=== PATIENT | female | born 1975 | race Two or more races ===

== ENCOUNTER 2016-10-15 17:26 | Emergency (ER) | payer SELFPAY ==
[2016-10-15] MEDS ORDERED: ASPIRIN 81 MG TABLET, CHEWABLE PO ONE (17:47)
[2016-10-15] MEDS ORDERED: IPRATROPIUM/ALBUTEROL 0.5-2.5 MG/3 ML AMPUL NEB ONE (17:48)
[2016-10-15] MEDS ORDERED: PREDNISONE 20 MG TABLET PO ONE (17:49)
--- NOTE | 2016-10-15 17:49 | ER Document Report ---
ED Medical Screen (RME) - General Stated Complaint: CHEST PAIN Mode of Arrival: Ambulatory Information source: Patient Notes: Patient presents with chest pain that started yesterday, cough symptoms started today. Patient also reports headache symptoms. Patient states she has chronic chest pains that she attributes to anemia. hx: Anemia, thyroid I have greeted and performed a rapid initial assessment of this patient. A comprehensive ED assessment and evaluation of the patient, analysis of test results and completion of the medical decision making process will be conducted by additional ED providers. TRAVEL OUTSIDE OF THE [place] IN LAST 30 DAYS: No - Related Data Allergies/Adverse Reactions: No Known Allergies Allergy (Verified 10/15/16 17:45) Past Medical History Pulmonary Medical History: Reports: Hx Pneumonia Endocrine Medical History: Reports: Hx Hypothyroidism GI Medical History: Reports: Hx Irritable Bowel Psychiatric Medical History: Reports: Hx Anxiety, Hx Depression Past Surgical History: Reports: Hx Gynecologic Surgery - bilateral salpingectomy , Hx Tubal Ligation - Immunizations Immunizations up to date: No Hx Diphtheria, Pertussis, Tetanus Vaccination: Yes Physical Exam - Respiratory Respiratory status: No respiratory distress Breath sounds: Nonproductive cough, Wheezing - Cardiovascular Rhythm: Regular Heart sounds: S1 appreciated, S2 appreciated
--- NOTE | 2016-10-15 18:39 | EKG REPORT ---
SEVERITY:- NORMAL ECG - SINUS RHYTHM : Confirmed by: Sage Gandara 15-Oct-2016 18:39:04
[2016-10-15] MEDS ORDERED: ONDANSETRON 4 MG TAB.RAPDIS ONE (20:31)
[2016-10-15] MEDS ORDERED: ONDANSETRON 4 MG TAB.RAPDIS PO ONE (20:33)
[2016-10-15] MEDS ORDERED: PROCHLORPERAZINE EDISYLATE INJ 10 MG/2 ML VIAL IV ONE (20:48)
[2016-10-15] MEDS ORDERED: KETOROLAC TROMETHAMINE INJ/PF 30 MG/1 ML SDV IV ONE (20:48)
[2016-10-15] MEDS ORDERED: DIPHENHYDRAMINE HCL 50 MG/ML VIAL IV ONE (20:48)
[2016-10-15] MEDS ORDERED: NORMAL SALINE 1000 ML 1,000 ML IV ONE (20:49)
[2016-10-15] MEDS ORDERED: BENZONATATE 100 MG CAPSULE PO ONE (20:50)
--- NOTE | 2016-10-15 20:51 | ER Document Report ---
ED General - General Chief Complaint: Chest Pain Stated Complaint: CHEST PAIN Mode of Arrival: Ambulatory Notes: Patient is a 41-year-old female with past history of morbid obesity and hypertension who presents with chest discomfort, headache, and a persistent cough for the past 2 days. Describes her chest discomfort as a dull, throbbing pain that is worsened by coughing and started after approximately 24 hours of persistent coughing. Nothing improves or worsens that pain. She also notes that she has had a headache that started in the last 12-24 hours. Gradual in onset and progressively worsening. It is bitemporal and throbbing. States she' s had similar headaches in the past. She is not seeing her primary care physician regarding today's concerns. She has not taken anything to treat her symptoms. Multiple sick contacts at home with the same symptoms. TRAVEL OUTSIDE OF THE [place] IN LAST 30 DAYS: No - Related Data Allergies/Adverse Reactions: No Known Allergies Allergy (Verified 10/15/16 17:45) Past Medical History - General Information source: Patient - Social History Smoking Status: Never Smoker Chew tobacco use (# tins/day): No Frequency of alcohol use: None Drug Abuse: None Lives with: Spouse/Significant other Family History: Arthritis, CAD, DM, Hyperlipidemia, Hypertension, Thyroid Disfunction, Other Patient has suicidal ideation: No Patient has homicidal ideation: No Pulmonary Medical History: Reports: Hx Pneumonia Endocrine Medical History: Reports: Hx Hypothyroidism Renal/ Medical History: Denies: Hx Peritoneal Dialysis GI Medical History: Reports: Hx Irritable Bowel Psychiatric Medical History: Reports: Hx Anxiety, Hx Depression Past Surgical History: Reports: Hx Gynecologic Surgery - bilateral salpingectomy , Hx Tubal Ligation - Immunizations Immunizations up to date: No Hx Diphtheria, Pertussis, Tetanus Vaccination: Yes Review of Systems - Review of Systems Notes: Constitutional: Negative for fever. HENT: Negative for sore throat. Eyes: Negative for visual changes. Cardiovascular: Positive for chest pain. Respiratory: Negative for shortness of breath. Positive for cough Gastrointestinal: Negative for abdominal pain, vomiting or diarrhea. Positive for nausea Genitourinary: Negative for dysuria. Musculoskeletal: Negative for back pain. Skin: Negative for rash. Neurological: Negative for headaches, weakness or numbness. 10 point ROS negative except as marked above and in HPI. Physical Exam - Vital signs Vitals: Temp Pulse Resp BP Pulse Ox 98.4 F 102 H 25 H 143/98 H 100 10/15/16 17:46 10/15/16 17:46 10/15/16 17:46 10/15/16 17:46 10/15/16 17:46 Interpretation: Tachycardic, Tachypneic Notes: PHYSICAL EXAMINATION: GENERAL: Well-appearing, well-nourished and in no acute distress. HEAD: Atraumatic, normocephalic. EYES: Pupils equal round and reactive to light, extraocular movements intact, sclera anicteric, conjunctiva are normal. ENT: nares patent, oropharynx clear without exudates. Moist mucous membranes. NECK: Normal range of motion, supple without lymphadenopathy LUNGS: Breath sounds clear to auscultation bilaterally and equal. No wheezes rales or rhonchi. HEART: Regular rate and rhythm without murmurs Chest wall: Pain on palpation of the mid sternal region ABDOMEN: Soft, nontender, normoactive bowel sounds. No guarding, no rebound. No masses appreciated. EXTREMITIES: Normal range of motion, no pitting or edema. No cyanosis. NEUROLOGICAL: Face symmetric. Tongue protrudes midline. Extraocular motions intact. Pupils are 2 mm and equally reactive. Normal speech, normal gait. 5 out of 5 strength in both the distal and proximal upper and lower extremities bilaterally. Sensation is grossly intact throughout. Finger to nose testing normal. Pronator drift normal. PSYCH: Normal mood, normal affect. SKIN: Warm, Dry, normal turgor, no rashes or lesions noted. Course - Re-evaluation Re-evalutation: 10/15/16 20:50 Patient presents with cough, vomiting, diarrhea, and fever at home consistent with a diagnosis of influenza or a flulike illness. Patient is overall well in appearance, in no acute distress. Lung sounds clear. Able to tolerate oral intake without difficulty here in the emergency department. After risks and benefits conversation with the patient regarding the use of Tamiflu, they have elected to use supportive care without Tamiflu based on concerns about lack of efficacy as well as the side effect profile. Laboratories do not show any significant dehydration, and chest x-ray is clear area and patient did complain of chest wall pain that started after days of vigorous coughing and her clinical history is not consistent with an acute pulmonary embolus, ACS, or aortic dissection. EKG is unremarkable and I do not believe cardiac marker testing is indicated based on her clinical history. Regarding patient's headache: I suspect that this is related to her infectious illness and is not related to an acute meningitis, encephalitis or subarachnoid hemorrhage. Her headache did completely resolve after receiving a migraine cocktail here in the emergency department. At this time will discharge with return precautions and follow-up recommendations. Verbal discharge instructions given a the bedside and opportunity for questions given. Medication warnings reviewed. Patient is in agreement with this plan and has verbalized understanding of return precautions and the need for primary care follow-up in the next 24-72 hours. - Vital Signs Vital signs: Temp Pulse Resp BP Pulse Ox 98.3 F 102 H 16 120/74 97 10/15/16 23:09 10/15/16 17:46 10/15/16 23:07 10/15/16 23:07 10/15/16 23:07 - Laboratory Result Diagrams: 10/15/16 21:04 Laboratory results interpreted by me: 10/15/16 21:04 Potassium 3.2 L - Diagnostic Test Radiology reviewed: Image reviewed, Reports reviewed Radiology results interpreted by me: 10/16/16 03:50 Chest x-ray: No acute infiltrate - EKG Interpretation by Me Additional EKG results interpreted by me: 10/16/16 03:50 Normal sinus rhythm. Rate 70. No ST elevations or depressions. QTC is 423. Discharge - Discharge Clinical Impression: Persistent cough, Chest wall pain Condition: Good Disposition: HOME, SELF-CARE Additional Instructions: Your symptoms are most consistent with flu or flulike illness. There is no treatment that is effective for this diagnosis other than supportive care at home. This includes drinking plenty of fluids, using Tylenol or ibuprofen as needed for fever and discomfor. Please follow closely with you primary care physician the next 1-2 days regarding this diagnosis. Return to the emergency department immediately if you began to have persistent vomiting prevents you from being able to keep fluids down for more than 12 hours, you pass out, you began having difficulty breathing, you become confused, or you have any other symptoms that are worrisome to you.
[2016-10-15 21:36] LABS: ANION GAP 12 (5-19); BLOOD UREA NITROGEN 7 mg/dL (7-20); CALCIUM 9.3 mg/dL (8.4-10.2); CARBON DIOXIDE 22 mmol/L (22-30); CHLORIDE 107 mmol/L (98-107); CREATININE RESULT 0.72 mg/dL (0.52-1.25); GLUCOSE 107 mg/dL (75-110); POTASSIUM 3.2 mmol/L (3.6-5.0); SODIUM 140.6 mmol/L (137-145)
[2016-10-15 23:15] VITALS: BP 120/74
== END 2016-10-15 23:11 | disposition home or self-care (01) ==
LOC: ER 17:26
DX: R05 Cough (principal); R07.89 Other chest pain; E66.01 Morbid (severe) obesity due to excess calories; I10 Essential (primary) hypertension; R51 Headache
CPT/HCPCS: 93005; 94640; 99285; 96374; 96375; 81025; 80048; 71020; 93010; J1200; S0119; J1885; J7512; J0780; J7030; J7620

== ENCOUNTER 2017-02-24 17:27 | Emergency (ER) | payer SELFPAY ==
[2017-02-24] MEDS ORDERED: ASPIRIN 81 MG TABLET, CHEWABLE PO ONE (17:54)
--- NOTE | 2017-02-24 18:29 | ER Document Report ---
ED Medical Screen (RME) - General Mode of Arrival: Ambulatory Information source: Patient TRAVEL OUTSIDE OF THE [place] IN LAST 30 DAYS: No - HPI Patient complains to provider of: Chest Pain Onset: Other - 2-3 months ago Onset/Duration: Intermittent Associated Symptoms: Other - see notes above <ORA YUNG - Last Filed: 02/24/17 18:43> <JOEY PLUNKETT - Last Filed: 02/24/17 20:22> - General Chief Complaint: Chest Pain Stated Complaint: CHEST PAIN Time Seen by Provider: 02/24/17 17:45 Notes: 41-year-old female with history of chest pain, anemia, pneumonia, and 'possible left lung pulmonary emboli' presents to the ED complaining of intermittent sharp and throbbing chest pain that has been ongoing for the past 2-3 months. Patient reports the pain is severe enough to stop her from performing activities. Patient also experiencing heart palpitations, dizziness, and weakness with his current episode of chest pain which is new compared to old episodes. Patient is additionally complaining of nausea, but denies vomiting or black tarry stool. 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 Patient had an appointment with the [facility] this morning and received a call later in the afternoon informing her that she had a low hemoglobin count and to check herself into the ED. Patient was seen in the ED in November 2015 secondary to chest pain and was diagnosed with a 'possible left lung PE' and pneumonia. Patient was discharged with blood thinners and is currently not on any. (ORA YUNG) - Related Data Allergies/Adverse Reactions: No Known Allergies Allergy (Verified 10/15/16 17:45) Past Medical History - General Information source: Patient Pulmonary Medical History: Reports: Hx Pneumonia Endocrine Medical History: Reports: Hx Hypothyroidism Renal/ Medical History: Denies: Hx Peritoneal Dialysis GI Medical History: Reports: Hx Irritable Bowel Psychiatric Medical History: Reports: Hx Anxiety, Hx Depression Past Surgical History: Reports: Hx Gynecologic Surgery - bilateral salpingectomy , Hx Tubal Ligation - Immunizations Immunizations up to date: No Hx Diphtheria, Pertussis, Tetanus Vaccination: Yes <ORA YUNG - Last Filed: 02/24/17 18:43> <JOEY PLUNKETT - Last Filed: 02/24/17 20:22> - Medical History Notes: History of anemia (ORA YUNG) Review of Systems - Review of Systems Constitutional: See HPI, Weakness EENT: No symptoms reported Cardiovascular: See HPI, Chest pain, Palpitations, Dizziness Respiratory: No symptoms reported Gastrointestinal: See HPI, Nausea. denies: Vomiting, Black stools Genitourinary: No symptoms reported Female Genitourinary: No symptoms reported Musculoskeletal: No symptoms reported Skin: No symptoms reported Hematologic/Lymphatic: No symptoms reported Neurological/Psychological: No symptoms reported -: Yes All other systems reviewed and negative <ORA YUNG - Last Filed: 02/24/17 18:43> Physical Exam - General General appearance: Alert In distress: None - Respiratory Respiratory status: No respiratory distress Breath sounds: Normal - Cardiovascular Rhythm: Regular Heart sounds: Normal auscultation Murmur: No Friction rub: No Gallop: None auscultated <ORA YUNG - Last Filed: 02/24/17 18:43> Course - Laboratory Result Diagrams: 02/24/17 18:20 02/24/17 17:54 <JOEY PLUNKETT - Last Filed: 02/24/17 20:22> - Vital Signs Vital signs: Temp Pulse Resp BP Pulse Ox 98.3 F 96 15 136/86 H 99 02/24/17 17:32 02/24/17 17:32 02/24/17 17:32 02/24/17 17:32 02/24/17 17:32 - Laboratory Laboratory results interpreted by me: 02/24/17 02/24/17 02/24/17 17:54 18:20 18:20 Hgb 7.1 L Hct 25.1 L MCV 61 L MCH 17.2 L MCHC 28.4 L RDW 17.6 H Chloride 108 H Carbon Dioxide 20 L Crossmatch See Detail Scribe Documentation - Scribe Written by Sangita:: Sangita Burns, 02/24/2017 1900 acting as scribe for :: Ginger <ORA YUNG - Last Filed: 02/24/17 18:43>
[2017-02-24 19:07] LABS: PROTHROMBIN TIME 13.2 SEC (11.4-15.4)
[2017-02-24 19:09] LABS: D-DIMER 0.39 ug/mL (0.00-0.50)
[2017-02-24 19:17] LABS: ALANINE AMINOTRANSFERASE 22 U/L (9-52); ALBUMIN 4.4 g/dL (3.5-5.0); ALKALINE PHOSPHATASE 91 U/L (38-126); ANION GAP 14 (5-19); ASPARTATE AMINO TRANSFERASE 21 U/L (14-36); BILIRUBIN,DIRECT 0.3 mg/dL (0.0-0.4); BILIRUBIN,TOTAL 0.4 mg/dL (0.2-1.3); BLOOD UREA NITROGEN 13 mg/dL (7-20); CALCIUM 8.9 mg/dL (8.4-10.2); CARBON DIOXIDE 20 mmol/L (22-30); CHLORIDE 108 mmol/L (98-107); CREATINE KINASE 49 U/L (30-135); CREATININE RESULT 0.67 mg/dL (0.52-1.25); GLUCOSE 94 mg/dL (75-110); POTASSIUM 4.1 mmol/L (3.6-5.0); SODIUM 142.1 mmol/L (137-145); TOTAL PROTEIN 7.9 g/dL (6.3-8.2)
[2017-02-24 19:20] LABS: HEMATOCRIT 25.1 % (36.0-47.0); HGB HCT DIFFERENCE -3.8; MEAN CORPUSCULAR HEMOGLOBIN 17.2 pg (27.0-33.4); MEAN CORPUSCULAR HGB CONC 28.4 g/dL (32.0-36.0); MEAN CORPUSCULAR VOLUME 61 fl (80-97); RED BLOOD COUNT 4.15 10^6/uL (3.72-5.28); RED CELL DISTRIBUTION WIDTH 17.6 % (11.5-14.0); WHITE BLOOD COUNT 9.6 10^3/uL (4.0-10.5)
[2017-02-24 19:23] LABS: HEMOGLOBIN 7.1 g/dL (12.0-15.5)
[2017-02-24 19:30] LABS: CREATINE KINASE MB < 0.22 ng/mL (<4.55); TROPONIN I < 0.012 ng/mL
[2017-02-24 19:37] LABS: TOXIC GRANULATION SLIGHT
[2017-02-24 19:38] LABS: ANISOCYTOSIS 1+; HYPOCHROMASIA 2+; MICROCYTOSIS 3+; OVALOCYTES SLIGHT; POIKILOCYTOSIS SLIGHT; POLYCHROMASIA SLIGHT; TARGET CELLS SLIGHT
--- NOTE | 2017-02-24 19:57 | RADIOLOGY REPORT (SQ) ---
EXAM DESCRIPTION: CHEST SINGLE VIEW COMPLETED DATE/TIME: 02/24/2017 7:48 pm REASON FOR STUDY: CP, SOB COMPARISON: 10/15/2016 EXAM PARAMETERS: NUMBER OF VIEWS: One view. TECHNIQUE: Single frontal radiographic view of the chest acquired. RADIATION DOSE: NA LIMITATIONS: None. FINDINGS: LUNGS AND PLEURA: No opacities, masses or pneumothorax. No pleural effusion. MEDIASTINUM AND HILAR STRUCTURES: No masses. Contour normal. HEART AND VASCULAR STRUCTURES: Heart normal in size. Normal vasculature. BONES: No acute findings. HARDWARE: None in the chest. OTHER: No other significant finding. IMPRESSION: NO ACUTE RADIOGRAPHIC FINDING IN THE CHEST. TECHNICAL DOCUMENTATION: JOB ID: [id number]
[2017-02-24] MEDS ORDERED: NORMAL SALINE 250 ML IV PRN ×2 (19:58)
--- NOTE | 2017-02-24 19:58 | ER Document Report ---
ED General - General Chief Complaint: Chest Pain Stated Complaint: CHEST PAIN Time Seen by Provider: 02/24/17 17:45 Mode of Arrival: Ambulatory Notes: Patient is a 41-year-old female that comes emergency department for chief complaint of dyspnea on exertion, intermittent lightheadedness, intermittent chest pain. Symptoms have been worsening for the past 2 weeks. She states that the chest pain episode involves her feeling like she is having palpitations in her chest and she feels a discomfort over the left side of her chest and the lower part near the breast which resolved after a few seconds. She denies any regular chest pain. She states she is also more tired than usual. History of anemia, has had transfusions in the past. Patient admits to heavy vaginal bleeding monthly, she has never had an ultrasound or workup for this particularly she reports. She denies any dark or bloody stools. Patient states that she had an indeterminate VQ scan and temporarily took a blood thinner because of it, she states she had a negative CAT scan previously and she has never been diagnosed with a pulmonary embolism. She does not smoke, she denies recent travel or surgery, she denies personal or family history of pulmonary embolism. TRAVEL OUTSIDE OF THE [place] IN LAST 30 DAYS: No - Related Data Allergies/Adverse Reactions: No Known Allergies Allergy (Verified 10/15/16 17:45) Past Medical History - General Information source: Patient - Social History Smoking Status: Never Smoker Frequency of alcohol use: None Drug Abuse: None Lives with: Family Family History: Arthritis, CAD, DM, Hyperlipidemia, Hypertension, Thyroid Disfunction, Other Patient has suicidal ideation: No Patient has homicidal ideation: No Pulmonary Medical History: Reports: Hx Pneumonia Endocrine Medical History: Reports: Hx Hypothyroidism Renal/ Medical History: Denies: Hx Peritoneal Dialysis GI Medical History: Reports: Hx Irritable Bowel Psychiatric Medical History: Reports: Hx Anxiety, Hx Depression Past Surgical History: Reports: Hx Gynecologic Surgery - bilateral salpingectomy , Hx Tubal Ligation - Immunizations Immunizations up to date: No Hx Diphtheria, Pertussis, Tetanus Vaccination: Yes Review of Systems - Review of Systems Constitutional: No symptoms reported EENT: No symptoms reported Cardiovascular: See HPI Respiratory: See HPI Gastrointestinal: No symptoms reported Genitourinary: No symptoms reported Female Genitourinary: No symptoms reported Musculoskeletal: No symptoms reported Skin: No symptoms reported Hematologic/Lymphatic: No symptoms reported Neurological/Psychological: See HPI Physical Exam - Vital signs Vitals: Temp Pulse Resp BP Pulse Ox 98.3 F 96 15 136/86 H 99 02/24/17 17:32 02/24/17 17:32 02/24/17 17:32 02/24/17 17:32 02/24/17 17:32 Interpretation: Normal - General General appearance: Other - Patient appears stressed, slightly anxious, however she does not appear to be in any distress - HEENT Head: Normocephalic, Atraumatic Eyes: Normal Pupils: PERRL - Respiratory Respiratory status: No respiratory distress Chest status: Nontender Breath sounds: Normal Chest palpation: Normal - Cardiovascular Rhythm: Regular. No: Tachycardia Heart sounds: Normal auscultation, S1 appreciated, S2 appreciated Murmur: No - Abdominal Inspection: Normal Distension: No distension Bowel sounds: Normal Tenderness: Nontender. No: Tender Organomegaly: No organomegaly - Back Back: Normal, Nontender. No: Tender - Extremities General upper extremity: Normal inspection, Nontender, Normal color, Normal ROM , Normal temperature General lower extremity: Normal inspection, Nontender, Normal color, Normal ROM , Normal temperature, Normal weight bearing. No: Elisa's sign - Neurological Neuro grossly intact: Yes Cognition: Normal Orientation: AAOx4 Laura Coma Scale Eye Opening: Spontaneous Laura Coma Scale Verbal: Oriented [place] Coma Scale Motor: Obeys Commands [place] Coma Scale Total: 15 Speech: Normal Motor strength normal: LUE, RUE, LLE, RLE Sensory: Normal - Psychological Associated symptoms: Other - Patient appears mildly anxious and is close to tears when talking to her, however she is appropriate, conversational, oriented - Skin Skin Temperature: Warm Skin Moisture: Dry Skin Color: Normal Course - Re-evaluation Re-evalutation: Patient still reporting the intermittent chest pain sensation, this is not consistent, she denies current shortness of breath while sitting, she is not hypoxic, not tachycardic, she has no lower extremity swelling. D-dimer is not elevated although it is indeterminate. Discussed with patient, she does not want CAT scan imaging to further evaluate this, I agree with this because she does not present as a high PE risk. Hemoglobin at 7.1, ordering transfusion for symptomatic anemia. Chest x-ray unremarkable, remaining workup but no acute abnormalities. Cardiac enzymes negative despite patient reporting ongoing symptoms for over a week. On reevaluation patient is hyperventilating, states her chest pain is worse, she began to cry, she states that she feels anxious and cannot calm down and is not sure why. She states she has been sleeping poorly and has been anxious like this frequently. Family confirms. After discussion agreement was made to give patient something to help her calm down. On reevaluation after 0.5 mg of Ativan patient calm, smiling, relaxed. She states she has no current symptoms. Suspect anxiety component. Patient was transfused 1 unit of blood because of symptomatic anemia. Afterwards patient reevaluated again, smiling, states she is ready to leave. Patient does have primary care follow-up. Patient will be given iron, discussed potential OBGYN follow-up in the future, discussed return precautions , also discussed potentially needing anxiety medication and panic attack treatment. After discussion with patient and family she was prescribed Vistaril , small amount of Ativan for panic attack is only, they state understanding of treatment, plan, and return precautions. - Vital Signs Vital signs: Temp Pulse Resp BP Pulse Ox 98.2 F 76 19 126/79 H 100 02/25/17 00:40 02/25/17 00:40 02/25/17 01:40 02/25/17 01:40 02/25/17 01:40 - Laboratory Result Diagrams: 02/24/17 18:20 02/24/17 17:54 Laboratory results interpreted by me: 02/24/17 02/24/17 02/24/17 17:54 18:20 18:20 Hgb 7.1 L Hct 25.1 L MCV 61 L MCH 17.2 L MCHC 28.4 L RDW 17.6 H Chloride 108 H Carbon Dioxide 20 L Crossmatch See Detail Discharge - Discharge Clinical Impression: Symptomatic anemia, Chest pain, Anxiety Condition: Stable Disposition: HOME, SELF-CARE Additional Instructions: You have been transfused because of your anemia. Please follow-up with your primary care provider for additional management and treatment. You were being given the iron supplement, take as prescribed, also consider increasing iron in your diet. I also recommend follow-up with the OB/ [facility] [facility] referral because of ongoing heavy menstrual cycle. Take the Vistaril if needed for anxiety/sleep, take the Ativan only if needed in case of panic attack. Return to emergency department for any returned, worsening, or new concerning symptoms. Prescriptions: Ferrous Sulfate [Iron] 325 mg PO TID #30 tablet Hydroxyzine Pamoate [Vistaril 25 mg Capsule] 1 - 2 cap PO ASDIR PRN #30 capsule PRN Reason: Lorazepam [Ativan 0.5 mg Tablet] 0.5 mg PO Q4 PRN #12 tab PRN Reason: Forms: Return to Work
--- NOTE | 2017-02-24 20:53 | EKG REPORT ---
SEVERITY:- BORDERLINE ECG - SINUS RHYTHM LVH BY VOLTAGE : Confirmed by: Sage Gandara 24-Feb-2017 20:52:56
--- NOTE | 2017-02-24 21:09 | RADIOLOGY REPORT (SQ) ---
EXAM DESCRIPTION: U/S NON OB PEL TV W/DOPPLER COMPLETED DATE/TIME: 02/24/2017 8:57 pm REASON FOR STUDY: heavy bleeding causing anemia COMPARISON: None. TECHNIQUE: Dynamic and static grayscale images acquired of the pelvis via transvaginal approach and recorded on PACS. Additional selected color Doppler and spectral images recorded. LIMITATIONS: Body habitus FINDINGS: UTERUS: Contour normal. No mass. ENDOMETRIAL STRIPE: No focal or generalized thickening. No masses. CERVIX: No nabothian cysts. RIGHT OVARY: Not visualized LEFT OVARY: Not visualized FREE FLUID: None noted. OTHER: No other significant finding. MEASUREMENTS: UTERUS: 8 x 5 x 6 cm ENDOMETRIAL STRIPE: 6 mm RIGHT OVARY: Not visualized. LEFT OVARY: Not visualized. IMPRESSION: NORMAL TRANSVAGINAL PELVIC ULTRASOUND. Ovaries not visualized. TECHNICAL DOCUMENTATION: JOB ID: [id number] [employer]- All Rights Reserved
[2017-02-24] MEDS ORDERED: LORAZEPAM INJ 2 MG/1 ML VIAL IV ONE (21:22)
[2017-02-25 01:46] VITALS: BP 126/79
== END 2017-02-25 02:02 | disposition home or self-care (01) ==
LOC: ER 17:27
DX: R07.9 Chest pain, unspecified (principal); D64.9 Anemia, unspecified; F41.9 Anxiety disorder, unspecified; R06.09 Other forms of dyspnea; R42 Dizziness and giddiness; R53.83 Other fatigue
CPT/HCPCS: 93005; 99285; 96361; 96374; 86900; 86901; 36415; 82553; 36430; 86850; 82550; 84703; 85025; 85610; 80053; 84484; 86920; 85379; 71010; 76830; 93976; 93010; P9016; J2060; J7050

== ENCOUNTER → 2017-02-24 | Outpatient (CLI) | payer OTHER ==
[2017-02-24 15:01] LABS: HEMATOCRIT 27.2 % (36.0-47.0); MEAN CORPUSCULAR HEMOGLOBIN 17.2 pg (27.0-33.4); MEAN CORPUSCULAR HGB CONC 28.4 g/dL (32.0-36.0); RED CELL DISTRIBUTION WIDTH 17.7 % (11.5-14.0); WHITE BLOOD COUNT 9.2 10^3/uL (4.0-10.5)
[2017-02-24 15:22] LABS: ALANINE AMINOTRANSFERASE 23 U/L (9-52); ALBUMIN 4.7 g/dL (3.5-5.0); ALKALINE PHOSPHATASE 96 U/L (38-126); ANION GAP 16 (5-19); ASPARTATE AMINO TRANSFERASE 23 U/L (14-36); BILIRUBIN,DIRECT 0.3 mg/dL (0.0-0.4); BILIRUBIN,TOTAL 0.4 mg/dL (0.2-1.3); BLOOD UREA NITROGEN 14 mg/dL (7-20); CALCIUM 9.4 mg/dL (8.4-10.2); CARBON DIOXIDE 19 mmol/L (22-30); CHLORIDE 106 mmol/L (98-107); CREATININE RESULT 0.66 mg/dL (0.52-1.25); GLUCOSE 76 mg/dL (75-110); POTASSIUM 4.4 mmol/L (3.6-5.0); SODIUM 140.9 mmol/L (137-145); TOTAL PROTEIN 8.3 g/dL (6.3-8.2)
[2017-02-24 15:29] LABS: HGB HCT DIFFERENCE -4.1
[2017-02-24 15:30] LABS: MEAN CORPUSCULAR VOLUME 60 fl (80-97)
[2017-02-24 15:33] LABS: BASOPHILS % (MANUAL) 0 % (0-2); EOSINOPHILS % (MANUAL) 4 % (0-6); LYMPHOCYTES % (MANUAL) 18 % (13-45); TOTAL CELLS COUNTED 100
[2017-02-24 15:39] LABS: ANISOCYTOSIS 1+; HYPOCHROMASIA 1+; MICROCYTOSIS 3+; OVALOCYTES SLIGHT; POIKILOCYTOSIS SLIGHT; POLYCHROMASIA SLIGHT; TEAR DROP CELLS SLIGHT
[2017-02-24 15:40] LABS: HEMOGLOBIN 7.7 g/dL (12.0-15.5)
[2017-02-24 15:41] LABS: TOXIC VACUOLATION PRESENT
[2017-02-27 14:30] LABS: PATH REVIEW PATHOLOGIST REVIEWED
== END ==
LOC: CCC 12:49
DX: D64.9 Anemia, unspecified (principal); E03.9 Hypothyroidism, unspecified
CPT/HCPCS: 36415; 80053; 84443; 85025